=== PATIENT | male | born 1950 ===

== ENCOUNTER → 2018-06-08 18:55 | Outpatient (REF) | payer OTHER, SELFPAY ==
[2018-06-08 19:33] LABS: Free T3, Triiodothyronine Free 3.48 pg/mL (2.77-5.27); Free T4, Direct Thyroxine 0.94 ng/dL (0.78-2.19)
== END ==
LOC: LAB 18:55
PROVIDERS: Visit Provider Naturopath
DX: E03.9 Hypothyroidism, unspecified (principal)
CPT/HCPCS: 36415; 84439; 84443; 84481